=== PATIENT | female | born 1985 | race Two or more races ===

== ENCOUNTER → 2017-04-04 | Outpatient (CLI) | payer OTHER ==
[2015-06-06 18:07] VITALS: BP 119/77
[~2017-04-04] MED LIST: IBUP-1060 PO; OXYC-323 PO; PNV1TABL25 PO
--- NOTE | 2017-04-04 09:31 | RAD ---
Pelvic ultrasound, 04/04/2017: History: Pelvic pain Transabdominal and transvaginal scans were obtained. The uterus measures 7.5 x 4.9 x 6.0 cm. The central uterine echo complex is slightly thickened measuring 12 mm in AP dimension. There is a small amount of fluid in the central uterine cavity. This is probably related to impending menses given the patient's LMP of 03/03/2017. The ovaries are of normal size. Blood flow is present in both ovaries. No adnexal mass is seen. The periuterine vascularity is increased, particularly on the left. A trace amount of free fluid is noted in the pelvis. This amount of fluid can be on a physiologic basis. IMPRESSION: 1. Mild thickening of the central uterine echo complex. 2. Increase periuterine vascularity, particularly on the left, raising the possibility of pelvic congestion syndrome. 3. No pelvic mass is evident.
--- NOTE | 2017-04-04 10:07 | RAD ---
Abdominal ultrasound, 04/04/2017: History: Abdominal pain The gallbladder is surgically absent. The common hepatic duct is of normal caliber. There is no evidence of a hepatic mass. The visualized portions of the pancreas, spleen and both kidneys are unremarkable. The abdominal aorta and inferior vena cava show no abnormality. No free fluid is evident in the abdomen. IMPRESSION: 1. Status post cholecystectomy. 2. The abdominal ultrasound is otherwise unremarkable.
== END | disposition home or self-care (01) ==
LOC: US 06:44
PROVIDERS: ATTEND Family Medicine
DX: R10.2 Pelvic and perineal pain (principal); Z90.49 Acquired absence of other specified parts of digestive tract
CPT/HCPCS: 76700; 76830; 76856

== ENCOUNTER 2017-08-23 10:03 | Emergency (ER) | payer OTHER | END 2017-08-23 11:38 | disposition home or self-care (01) | LOC: ER 10:03 | DX: S83.92XA Sprain of unspecified site of left knee, initial encounter (principal); W01.0XXA Fall on same level from slipping, tripping and stumbling without subsequent striking against object, initial encounter; Y93.89 Activity, other specified; Y99.8 Other external cause status; Y92.89 Other specified places as the place of occurrence of the external cause | CPT/HCPCS: 29505; 73562; 99284-25 ==

== ENCOUNTER → 2017-08-30 | Outpatient (CLI) | payer OTHER | END | disposition home or self-care (01) | LOC: KCIC MRI 13:17 | DX: S80.12XA Contusion of left lower leg, initial encounter (principal); M25.462 Effusion, left knee; X58.XXXA Exposure to other specified factors, initial encounter; Y93.89 Activity, other specified; Y92.89 Other specified places as the place of occurrence of the external cause; Y99.8 Other external cause status | CPT/HCPCS: 73721 ==